=== PATIENT | female | born 1950 | race Caucasian/White ===

== ENCOUNTER 2016-11-07 18:28 | Emergency (ER) | payer OTHER ==
[~2016-11-07] VITALS: Ht 170.2 cm; Wt 119.0 kg
[~2016-11-07 18:28] MED LIST: ADVAIR HFA120 INHALA IH; Aspirin E.C. PO; BACTRIM,SEPT1 TABLET PO; CEFDINIR300 MG PO; CIPRO250 MG PO; CIPRO500 MG PO; CYANOCOBALAM1000 MCG PO; Ceftin PO; DELTASONE20 M1 PO; ENALAPRIL MALEA20 MG PO; FISH OIL 1,0001 EAC7 PO; FLONASE16 G1 BOTH NARES; FLORASTOR250 MG PO; FLOVENT 11120 INHALA IH; FLUCONAZOLE100 MG PO; FLUOXETINE HCL20 MG PO; FUROSEMIDE40 MG PO; Flovent 110 mcg IH; INHALER IH; Imdur PO; KEFLEX500 MG PO; KENALOG,ARISTOC80 G1 TP; KLOR-CON 1010 ME1 PO; LASIX20 MG PO; LASIX40 MG PO; LISINOPRIL10 MG PO; LO-DOSE ASPIRIN81 M1 PO; LOPRESSOR25 MG PO; LUCENTIS0.5 MG/0.0 BOTH EYES; Lopressor PO; MEDROL DOSEPAK4 MG PO; MICRO-K10 ME2 PO; MINITRAN1 EACH TD; NICODERM CQ1 EAC1 TD; NITROGLYCERIN1 EAC1 TD; NYSTATIN60 GM TP; PLAVIX75 MG PO; PRAVACHOL40 MG PO; PRAVASTATIN SOD80 MG PO; PRIMIDONE50 MG PO; PRINIVIL20 MG PO; PROAIR HFA8.5 GM IH; PROZAC20 MG PO; PROZAC40 MG PO; RANITIDINE HCL150 MG PO; SINEQUAN10 MG PO; SPIRIVA1 INHALATI IH; TRAMADOL HCL50 MG PO; VASOTEC20 MG PO; VOLTAREN75 MG PO; ZANTAC150 MG PO
[2016-11-07 19:46] LABS: EOSINOPHIL (%) 1.2 % (0-5); EOSINOPHIL COUNT 0.2 K/uL (0-0.3); HEMATOCRIT 38.5 % (36.0-46.0); IMMATURE GRANULOCYTE (%) 0.4 % (0.0-0.7); IMMATURE GRANULOCYTE COUNT 0.5 K/uL; LYMPHOCYTE COUNT 1.4 K/uL (1.0-2.8); MCH 26.3 PG (29.0-34.0); MCHC 31.7 G/DL (30.0-36.0); MCV 83.2 FL (83-99); MEAN PLAT.VOLUME 11.4 uM^3 (9.5-12.4); MONOCYTE COUNT 0.7 K/uL (0-0.8); NEUTROPHIL (%) 82.4 % (45-76); NEUTROPHIL COUNT 10.7 K/uL (1.8-6.4); PLATELET COUNT 177 K/uL (156-360); RBC DIS.WIDTH-CV 14.7 % (11.8-14.6); RED BLOOD COUNT 4.63 M/uL (3.80-5.20)
[2016-11-07 19:57] LABS: CHLORIDE 100 mEq/L (99-109); POTASSIUM 4.4 mEq/L (3.7-5.4); SODIUM 138 mEq/L (136-147)
[2016-11-07 19:59] LABS: GLUCOSE 119 mg/dL (70-99)
[2016-11-07 20:00] LABS: ANION GAP 12 MEQ/L (2-14)
[2016-11-07 20:01] LABS: TOTAL BILIRUBIN 0.4 mg/dL (0.0-1.0)
[2016-11-07 20:03] LABS: ALKALINE PHOSPHATASE 68 IU/L (3-129); GFR ESTIMATE (CALCULATED) 40 mL/min/
[2016-11-07 20:04] LABS: UREA NITROGEN (BUN) 18 mg/dL (9-23)
[2016-11-07 20:43] LABS: ADD MIUA? YES; BILIRUBIN NEGATIVE; BLOOD NEGATIVE; COLOR YELLOW ((YELLOW)); GLUCOSE (STRIP) NEGATIVE; KETONES NEGATIVE; LEUKOCYTES SMALL; NITRITE NEGATIVE; PH, URINE 5.5 (5-8); PROTEIN (STRIP) NEGATIVE; SPECIFIC GRAVITY 1.013 (1.000-1.030); UROBILINOGEN 0.2 MG/DL (0.2-1.0)
[2016-11-07 20:56] LABS: BACTERIA 1+; CASTS NONE SEEN /LPF; CRYSTALS NONE SEEN; EPITHELIAL CELLS 2+; MUCUS NONE SEEN; PATHOLOGICAL CAST NONE SEEN; RED BLOOD CELLS 0-5 /HPF (0-5); SMALL ROUND CELL NONE SEEN; UCUL ADDED? NO; WHITE BLOOD CELLS 20-30 /HPF (0-5); YEAST-LIKE CELL NONE SEEN
[2016-11-07] MEDS ORDERED: KEFLEX500 MG PO (21:17)
[2016-11-07 22:00] VITALS: BP 109/52
== END 2016-11-07 22:19 | disposition home or self-care (01) ==
LOC: EME → EDBD 18:28 → EME 22:19
PROVIDERS: Emergency Medicine
DX: N39.0 Urinary tract infection, site not specified (principal); R06.02 Shortness of breath; R55 Syncope and collapse; R09.89 Other specified symptoms and signs involving the circulatory and respiratory systems; E78.5 Hyperlipidemia, unspecified; I10 Essential (primary) hypertension; F17.200 Nicotine dependence, unspecified, uncomplicated; Z71.6 Tobacco abuse counseling; Z86.73 Personal history of transient ischemic attack (TIA), and cerebral infarction without residual deficits; Z95.1 Presence of aortocoronary bypass graft
CPT/HCPCS: 70450; 71010; 80053; 81003; 85025; 99281; 99285; J0696; J7050

== ENCOUNTER 2017-01-04 23:09 | Inpatient (IN) | payer OTHER ==
[~2017-01-04] VITALS: Ht 170.2 cm; Wt 121.5 kg
[2017-01-04 23:32] LABS: MCH 26.4 PG (29.0-34.0); MCHC 31.6 G/DL (30.0-36.0); MCV 83.7 FL (83-99); MEAN PLAT.VOLUME 11.5 uM^3 (9.5-12.4); PLATELET COUNT 143 K/uL (156-360); RBC DIS.WIDTH-CV 15.5 % (11.8-14.6); RBC DIS.WIDTH-SD 47.1 % (39-53); RED BLOOD COUNT 4.54 M/uL (3.80-5.20); WHITE BLOOD COUNT 18.3 K/uL (4.1-10.2)
[2017-01-04 23:41] LABS: CHLORIDE 103 mEq/L (99-109); POTASSIUM 4.6 mEq/L (3.7-5.4); SODIUM 136 mEq/L (136-147)
[2017-01-04 23:43] LABS: GLUCOSE 133 mg/dL (70-99)
[2017-01-04 23:44] LABS: ANION GAP 10 MEQ/L (2-14)
[2017-01-04 23:45] LABS: TOTAL BILIRUBIN 0.6 mg/dL (0.0-1.0)
[2017-01-04 23:46] LABS: ALKALINE PHOSPHATASE 69 IU/L (3-129)
[2017-01-04 23:47] LABS: GFR ESTIMATE (CALCULATED) 37 mL/min/
[2017-01-04 23:48] LABS: UREA NITROGEN (BUN) 16 mg/dL (9-23)
[2017-01-05 00:33] LABS: LIPASE 89 U/L (1.0-51.0)
[2017-01-05 00:39] LABS: TROP-I INTERPRETATION NEGATIVE; TROPONIN-I 0.01 ng/mL (0.0-0.30)
[2017-01-05 04:31] LABS: ADD MIUA? YES; BILIRUBIN NEGATIVE; BLOOD MODERATE; COLOR YELLOW ((YELLOW)); GLUCOSE (STRIP) NEGATIVE; KETONES NEGATIVE; LEUKOCYTES MODERATE; NITRITE POSITIVE; PROTEIN (STRIP) 30; SPECIFIC GRAVITY 1.012 (1.000-1.030); UROBILINOGEN 0.2 MG/DL (0.2-1.0)
[2017-01-05 04:35] LABS: BACTERIA 3+ /HPF; EPITHELIAL CELLS RARE /HPF; MUCUS TRACE /LPF; RED BLOOD CELLS 15-20 /HPF (0-5); UCUL ADDED? YES; WHITE BLOOD CELLS 30-40 /HPF (0-5)
[2017-01-05 07:50] VITALS: BP 133/65
[2017-01-05] MEDS ORDERED: ALBUTEROL2.5 MG/3 M IH (09:45)
[2017-01-05] MEDS ORDERED: MIDODRINE HCL5 MG PO (09:51)
[2017-01-05] MEDS ORDERED: VALIUM2 MG PO (09:52)
[2017-01-05] MEDS ORDERED: POLYTRIM EYE DR10 ML RIGHT EYE (09:52)
[2017-01-05 11:33] VITALS: BP 140/60
[2017-01-05 16:24] VITALS: BP 104/57
[2017-01-05 19:30] VITALS: BP 112/62
[2017-01-06 00:20] VITALS: BP 110/58
[2017-01-06 08:00] VITALS: BP 113/55
[2017-01-06 09:01] LABS: ANION GAP 7 MEQ/L (2-14); CHLORIDE 105 MEQ/L (99-109); GFR ESTIMATE (CALCULATED) 40 mL/min/; GLUCOSE 105 mg/dL (70-99); POTASSIUM 4.1 MEQ/L (3.7-5.4); SAMPLE HEMOLYSIS CHECK 0; SAMPLE ICTERIC CHECK 0; SAMPLE LIPEMIA CHECK 0; SODIUM 139 MEQ/L (136-147); UREA NITROGEN (BUN) 14 mg/dL (9-23)
[2017-01-06 16:00] VITALS: BP 153/65
[2017-01-07 00:10] VITALS: BP 150/72
[2017-01-07 07:18] VITALS: BP 115/56
[2017-01-07 08:26] LABS: ALKALINE PHOSPHATASE 53 IU/L (3-129); ANION GAP 8 MEQ/L (2-14); CHLORIDE 108 MEQ/L (99-109); GFR ESTIMATE (CALCULATED) 40 mL/min/; GLUCOSE 104 mg/dL (70-99); POTASSIUM 4.3 MEQ/L (3.7-5.4); SAMPLE HEMOLYSIS CHECK 0; SAMPLE ICTERIC CHECK 0; SAMPLE LIPEMIA CHECK 0; SODIUM 140 MEQ/L (136-147); TOTAL BILIRUBIN 0.5 MG/DL (0.0-1.0); UREA NITROGEN (BUN) 16 mg/dL (9-23)
[2017-01-07 09:05] LABS: EOSINOPHIL (%) 2.1 % (0-5); EOSINOPHIL COUNT 0.1 K/uL (0-0.3); HEMATOCRIT 31.4 % (36.0-46.0); IMMATURE GRANULOCYTE (%) 1.3 % (0.0-0.7); IMMATURE GRANULOCYTE COUNT 0.1 K/uL; INSTRUMENT ABS NEUTROPHIL CT 3.7 K/uL; MCH 26.1 PG (29.0-34.0); MCHC 30.3 G/DL (30.0-36.0); MCV 86.3 FL (83-99); MEAN PLAT.VOLUME 12.7 uM^3 (9.5-12.4); MONOCYTE (%) 9.4 % (3-12); MONOCYTE COUNT 0.5 K/uL (0-0.8); NEUTROPHIL (%) 68.5 % (45-76); NEUTROPHIL COUNT 3.7 K/uL (1.8-6.4); PLATELET COUNT 115 K/uL (156-360); RBC DIS.WIDTH-CV 15.7 % (11.8-14.6); RBC DIS.WIDTH-SD 49.9 % (39-53); RED BLOOD COUNT 3.64 M/uL (3.80-5.20)
[2017-01-07 09:07] LABS: WHITE BLOOD COUNT 5.3 K/uL (4.1-10.2)
[2017-01-07 09:47] LABS: LIPASE 33 U/L (1.0-51.0)
[2017-01-07 15:46] VITALS: BP 117/56
[2017-01-07 23:41] VITALS: BP 136/59
[2017-01-08 07:25] VITALS: BP 151/70
[2017-01-08 07:25] LABS: EOSINOPHIL COUNT 0.2 K/uL (0-0.3); HEMATOCRIT 29.6 % (36.0-46.0); IMMATURE GRANULOCYTE (%) 1.6 % (0.0-0.7); IMMATURE GRANULOCYTE COUNT 0.1 K/uL; INSTRUMENT ABS NEUTROPHIL CT 3.2 K/uL; LYMPHOCYTE COUNT 1.1 K/uL (1.0-2.8); MCH 26.3 PG (29.0-34.0); MCHC 30.7 G/DL (30.0-36.0); MCV 85.5 FL (83-99); MEAN PLAT.VOLUME 12.3 uM^3 (9.5-12.4); MONOCYTE (%) 8.9 % (3-12); MONOCYTE COUNT 0.5 K/uL (0-0.8); NEUTROPHIL (%) 64.3 % (45-76); NEUTROPHIL COUNT 3.2 K/uL (1.8-6.4); PLATELET COUNT 114 K/uL (156-360); RBC DIS.WIDTH-CV 15.7 % (11.8-14.6); RBC DIS.WIDTH-SD 48.3 % (39-53); RED BLOOD COUNT 3.46 M/uL (3.80-5.20)
[2017-01-08 07:51] LABS: ALKALINE PHOSPHATASE 53 IU/L (3-129); ANION GAP 9 MEQ/L (2-14); CHLORIDE 108 MEQ/L (99-109); GFR ESTIMATE (CALCULATED) 44 mL/min/; GLUCOSE 96 mg/dL (70-99); POTASSIUM 4.2 MEQ/L (3.7-5.4); SAMPLE HEMOLYSIS CHECK 0; SAMPLE ICTERIC CHECK 0; SAMPLE LIPEMIA CHECK 0; SODIUM 141 MEQ/L (136-147); TOTAL BILIRUBIN 0.4 MG/DL (0.0-1.0); UREA NITROGEN (BUN) 15 mg/dL (9-23)
[2017-01-08] MEDS ORDERED: ADVAIR HFA120 INHALA IH (12:29)
[2017-01-08] MEDS ORDERED: CIPROFLOXACIN250 MG PO (12:29)
== END 2017-01-08 13:05 | disposition home health service (06) | DRG 690 ==
LOC: EME 23:09 → EDOF 01-05 05:55 → 2EASTP 01-05 05:55
PROVIDERS: Hospitalist; Internal Medicine
DX: N10 Acute pyelonephritis (principal); R78.81 Bacteremia; Z68.41 Body mass index [BMI] 40.0-44.9, adult; F33.9 Major depressive disorder, recurrent, unspecified; N18.3 Chronic kidney disease, stage 3 (moderate); J44.9 Chronic obstructive pulmonary disease, unspecified; I12.9 Hypertensive chronic kidney disease with stage 1 through stage 4 chronic kidney disease, or unspecified chronic kidney disease; K21.9 Gastro-esophageal reflux disease without esophagitis; B96.20 Unspecified Escherichia coli [E. coli] as the cause of diseases classified elsewhere; I25.10 Atherosclerotic heart disease of native coronary artery without angina pectoris; E78.5 Hyperlipidemia, unspecified; E66.01 Morbid (severe) obesity due to excess calories; R32 Unspecified urinary incontinence; G47.33 Obstructive sleep apnea (adult) (pediatric); N39.0 Urinary tract infection, site not specified; R91.8 Other nonspecific abnormal finding of lung field; G43.909 Migraine, unspecified, not intractable, without status migrainosus; K59.00 Constipation, unspecified; I51.7 Cardiomegaly; Z86.73 Personal history of transient ischemic attack (TIA), and cerebral infarction without residual deficits; Z86.010 Personal history of colon polyps; Z95.5 Presence of coronary angioplasty implant and graft; Z80.0 Family history of malignant neoplasm of digestive organs; Z82.49 Family history of ischemic heart disease and other diseases of the circulatory system
CPT/HCPCS: 71010; 71260; 74176; 80048; 80053; 81003; 83605; 83690; 84484; 85025; 85027; 85610; 85730; 86850; 86900; 86901; 87040; 87077; 87086; 87186; 87801; 94640; 94640 76; 94660; 97530 GP; 99202; 99281; 99285; J0696; J0744; J1644; J1956; J2405; J7030; J7050

== ENCOUNTER 2017-01-11 00:42 | Emergency (ER) | payer OTHER ==
[~2017-01-11] VITALS: Ht 170.2 cm; Wt 111.8 kg
[~2017-01-11 00:42] MED LIST changes: +ALBUTEROL2.5 MG/3 M IH; +CIPROFLOXACIN250 MG PO; +MIDODRINE HCL5 MG PO; +POLYTRIM EYE DR10 ML RIGHT EYE; +VALIUM2 MG PO
[2017-01-11 01:40] LABS: HEMATOCRIT 33.5 % (36.0-46.0); MCH 26.5 PG (29.0-34.0); MCV 85.5 FL (83-99); MEAN PLAT.VOLUME 11.9 uM^3 (9.5-12.4); PLATELET COUNT 146 K/uL (156-360); RBC DIS.WIDTH-CV 15.9 % (11.8-14.6); RBC DIS.WIDTH-SD 48.4 % (39-53); RED BLOOD COUNT 3.92 M/uL (3.80-5.20); WHITE BLOOD COUNT 10.6 K/uL (4.1-10.2)
[2017-01-11 01:49] LABS: CHLORIDE 105 mEq/L (99-109); POTASSIUM 4.7 mEq/L (3.7-5.4); SODIUM 139 mEq/L (136-147)
[2017-01-11 01:51] LABS: GLUCOSE 124 mg/dL (70-99)
[2017-01-11 01:53] LABS: ANION GAP 11 MEQ/L (2-14)
[2017-01-11 01:54] LABS: TOTAL BILIRUBIN 0.3 mg/dL (0.0-1.0)
[2017-01-11 01:55] LABS: ALKALINE PHOSPHATASE 71 IU/L (3-129); GFR ESTIMATE (CALCULATED) 44 mL/min/
[2017-01-11 01:56] LABS: UREA NITROGEN (BUN) 14 mg/dL (9-23)
[2017-01-11 01:57] LABS: DIRECT BILIRUBIN 0.1 mg/dL (0.0-0.3)
[2017-01-11 01:58] LABS: LIPASE 46 U/L (1.0-51.0)
[2017-01-11 04:07] VITALS: BP 96/59
== END 2017-01-11 04:19 | disposition home or self-care (01) ==
LOC: EME 00:42
PROVIDERS: Emergency Medicine
DX: R10.9 Unspecified abdominal pain (principal); R60.0 Localized edema; R11.0 Nausea; J44.9 Chronic obstructive pulmonary disease, unspecified; J45.909 Unspecified asthma, uncomplicated; I10 Essential (primary) hypertension; E78.5 Hyperlipidemia, unspecified; Z79.82 Long term (current) use of aspirin; Z79.02 Long term (current) use of antithrombotics/antiplatelets; Z95.1 Presence of aortocoronary bypass graft; F17.200 Nicotine dependence, unspecified, uncomplicated
CPT/HCPCS: 74177; 80048; 80076; 81003; 83690; 85027; 99281; 99284

== ENCOUNTER 2017-07-12 16:43 | Emergency (ER) | payer OTHER ==
[~2017-07-12] VITALS: Ht 170.2 cm; Wt 122.8 kg
[2017-07-12 18:04] LABS: ADD MIUA? YES; BILIRUBIN NEGATIVE; BLOOD SMALL; COLOR YELLOW ((YELLOW)); GLUCOSE (STRIP) NEGATIVE; KETONES NEGATIVE; LEUKOCYTES NEGATIVE; NITRITE NEGATIVE; PROTEIN (STRIP) NEGATIVE; SPECIFIC GRAVITY 1.006 (1.000-1.030); UROBILINOGEN 0.2 MG/DL (0.2-1.0)
[2017-07-12 18:15] LABS: BACTERIA RARE /HPF; EPITHELIAL CELLS RARE /HPF; HYALINE CASTS 0-5 /LPF; MUCUS NONE SEEN /LPF; RED BLOOD CELLS 0-5 /HPF (0-5); UCUL ADDED? NO; WHITE BLOOD CELLS 0-5 /HPF (0-5)
[2017-07-12 19:04] LABS: HEMATOCRIT 39.6 % (36.0-46.0); MCH 26.7 PG (29.0-34.0); MCHC 31.1 G/DL (30.0-36.0); MCV 85.9 FL (83-99); RED BLOOD COUNT 4.61 M/uL (3.80-5.20)
[2017-07-12 19:17] LABS: CHLORIDE 98 mEq/L (99-109); POTASSIUM 4.5 mEq/L (3.7-5.4); SODIUM 137 mEq/L (136-147)
[2017-07-12 19:19] LABS: GLUCOSE 91 mg/dL (70-99)
[2017-07-12 19:20] LABS: ANION GAP 15 MEQ/L (2-14)
[2017-07-12 19:21] LABS: TOTAL BILIRUBIN 0.6 mg/dL (0.0-1.0)
[2017-07-12 19:23] LABS: ALKALINE PHOSPHATASE 80 IU/L (3-129); GFR ESTIMATE (CALCULATED) 40 mL/min/
[2017-07-12 19:24] LABS: UREA NITROGEN (BUN) 18 mg/dL (9-23)
[2017-07-12 20:33] LABS: EOSINOPHIL (%) 0.9 % (0-5); EOSINOPHIL COUNT 0.2 K/uL (0-0.3); IMMATURE GRANULOCYTE (%) 0.8 % (0.0-0.7); IMMATURE GRANULOCYTE COUNT 0.1 K/uL; INSTRUMENT ABS NEUTROPHIL CT 12.6 K/uL; LYMPHOCYTE COUNT 2.3 K/uL (1.0-2.8); NEUTROPHIL (%) 78.1 % (45-76); NEUTROPHIL COUNT 12.6 K/uL (1.8-6.4)
[2017-07-12 20:47] LABS: PLAT.SUFFICIENCY ADEQUATE; PLATELET CLUMPS PRESENT - PLATELET COUNT APPEARS ADQ.; PLATELET COUNT UNABLE TO REPORT K/uL (156-360)
[2017-07-12] MEDS ORDERED: KEFLEX500 MG PO (20:47)
[2017-07-12] MEDS ORDERED: PYRIDIUM200 MG PO (20:47)
[2017-07-12 20:53] VITALS: BP 151/55
== END 2017-07-12 20:58 | disposition home or self-care (01) ==
LOC: EME 16:43
PROVIDERS: Physician Assistant
DX: R30.0 Dysuria (principal); R10.9 Unspecified abdominal pain; E78.5 Hyperlipidemia, unspecified; I11.0 Hypertensive heart disease with heart failure; I50.9 Heart failure, unspecified; Z87.440 Personal history of urinary (tract) infections; Z86.73 Personal history of transient ischemic attack (TIA), and cerebral infarction without residual deficits; Z95.1 Presence of aortocoronary bypass graft; G20 Parkinson's disease; J44.9 Chronic obstructive pulmonary disease, unspecified; K21.9 Gastro-esophageal reflux disease without esophagitis; F17.200 Nicotine dependence, unspecified, uncomplicated; Z79.82 Long term (current) use of aspirin
CPT/HCPCS: 74176; 80053; 81003; 83605; 85025; 85027; 87040; 87086; 99281; 99285; J0696; J1885; J2405; J7030; J7050

== ENCOUNTER 2017-07-26 17:52 | Emergency (ER) | payer OTHER ==
[~2017-07-26] VITALS: Ht 170.2 cm; Wt 122.7 kg
[~2017-07-26 17:52] MED LIST changes: +PYRIDIUM200 MG PO
[2017-07-26] MEDS ORDERED: NAPROXEN500 MG PO (19:29)
[2017-07-26 20:08] VITALS: BP 138/64
== END 2017-07-26 20:08 | disposition home or self-care (01) ==
LOC: EME 17:52
DX: S76.912A Strain of unspecified muscles, fascia and tendons at thigh level, left thigh, initial encounter (principal); I11.0 Hypertensive heart disease with heart failure; I50.9 Heart failure, unspecified; J44.9 Chronic obstructive pulmonary disease, unspecified; E78.5 Hyperlipidemia, unspecified; K21.9 Gastro-esophageal reflux disease without esophagitis; I65.29 Occlusion and stenosis of unspecified carotid artery; M16.0 Bilateral primary osteoarthritis of hip; M17.12 Unilateral primary osteoarthritis, left knee; G20 Parkinson's disease; F32.9 Major depressive disorder, single episode, unspecified; Z86.73 Personal history of transient ischemic attack (TIA), and cerebral infarction without residual deficits; Z95.1 Presence of aortocoronary bypass graft; Z99.81 Dependence on supplemental oxygen; Z79.82 Long term (current) use of aspirin; Z79.02 Long term (current) use of antithrombotics/antiplatelets; Z72.0 Tobacco use
CPT/HCPCS: 73502; 73552; 93971; 99281; 99284